=== PATIENT | male | born 1980 | race Two or more races ===

== ENCOUNTER → 2024-07-14 12:03 | Outpatient (REF) | payer OTHER, SELFPAY ==
[2024-07-19 08:59] LABS: HPV, High Risk Detected; HPV, High Risk Source Anal
== END ==
LOC: CLAB 12:03
PROVIDERS: ATTENDING PHYSICIAN Surgery
DX: Z72.52 High risk homosexual behavior (principal)
CPT/HCPCS: 87624; 88112